=== PATIENT | male | born 1950 | race Caucasian/White ===

== ENCOUNTER 2017-12-15 10:57 | Day surgery (SDC) | payer MEDICARE, MEDICAID ==
[2017-12-15] MEDS ORDERED: CEFAZOLIN SOD 1 GM in APPROPRIATE DILUENT 1 EA IV (11:15)
[2017-12-15] MEDS ORDERED: PROPOFOL 200 MG/20 ML VIAL As Ordered (12:40)
[2017-12-15] MEDS ORDERED: fentaNYL 100 MCG/2 ML INJECTION (J3010) As Ordered (12:40)
[2017-12-15] MEDS ORDERED: MIDAZOLAM INJ 2 MG/2 ML VIAL (J2250) As Ordered (12:41)
[2017-12-15] MEDS ORDERED: ONDANSETRON 4MG/2ML VIAL (J2405) As Ordered (13:28)
[2017-12-15] MEDS ORDERED: dexameTHASONE 4 MG/ML 1ML VIAL (J1100) As Ordered (13:28)
[2017-12-15] MEDS ORDERED: KETOROLAC 60 MG/2 ML VIAL (J1885) As Ordered (13:28)
[2017-12-15] MEDS: LIDOCAINE 1% SDV INJ 30 ML VIAL As Ordered (13:54)
== END 2017-12-15 15:10 | disposition home or self-care (01) ==
LOC: M SDC 10:57
DX: T82.198A Other mechanical complication of other cardiac electronic device, initial encounter (principal); R55 Syncope and collapse; I48.0 Paroxysmal atrial fibrillation; R94.31 Abnormal electrocardiogram [ECG] [EKG]; R00.2 Palpitations; I73.9 Peripheral vascular disease, unspecified; I49.3 Ventricular premature depolarization; E78.5 Hyperlipidemia, unspecified; N40.0 Benign prostatic hyperplasia without lower urinary tract symptoms; F41.9 Anxiety disorder, unspecified; F32.9 Major depressive disorder, single episode, unspecified; M15.0 Primary generalized (osteo)arthritis; J44.9 Chronic obstructive pulmonary disease, unspecified; M51.9 Unspecified thoracic, thoracolumbar and lumbosacral intervertebral disc disorder; F17.210 Nicotine dependence, cigarettes, uncomplicated; Z88.5 Allergy status to narcotic agent; Z91.040 Latex allergy status; Z79.899 Other long term (current) drug therapy; Z79.82 Long term (current) use of aspirin; Z96.641 Presence of right artificial hip joint; Z98.84 Bariatric surgery status
CPT/HCPCS: 33282

== ENCOUNTER 2023-01-03 11:37 | Day surgery (SDC) | payer MEDICARE, MEDICAID ==
[~2023-01-03] VITALS: Ht 177.8 cm; Wt 57.6 kg
[~2023-01-03 11:37] MED LIST: AIMO70IN2 SQ; ALBU2.5V10 INH; ALBUTEROL INH; AMIT10TA7 PO; APAP500T10 PO; ASPI81TA83 OR; ATOR1TAB21 PO; ATOR80TA59 PO; CYAN1000VL SUBQ; DULO1CAP6 PO; GABA-1171 PO; LIPI20TA OR; PRAZ2CAP PO; PROA1AER2 INH; PROAAER10 INH; SERT50TA29 PO; SYMB16INH INH; VITA100093 PO; VITA200015 PO; VITMTA PO; XARE10TA PO; [UNRECOGNIZED DRUG - CODE] PO
[2023-01-03] MEDS ORDERED: LIDOCAINE 2% 100MG/5ML SDV (FOR ANES.) As Ordered ONE (11:47)
[2023-01-03] MEDS ORDERED: fentaNYL 100 MCG/2 ML INJECTION As Ordered ONE (11:47)
[2023-01-03] MEDS ORDERED: MIDAZOLAM INJ 2MG/2ML VIAL As Ordered ONE (11:47)
[2023-01-03] MEDS ORDERED: propofoL 200 MG/20 ML VIAL As Ordered ONE (11:47)
[2023-01-03] MEDS ORDERED: LR 1,000 ML IV SCH (12:00)
[2023-01-03] MEDS ORDERED: ceFAZolin SOD 2 GM in IV 1 EA IV ONE (13:00)
[2023-01-03] MEDS ORDERED: LIDOCAINE 1% SDV 30ML VIAL As Ordered ONE (13:08)
[2023-01-03 14:55] VITALS: BP 117/67
== END 2023-01-03 15:30 | disposition home or self-care (01) ==
LOC: M SDC 11:37
PROVIDERS: ATTEND Internal Medicine Cardiovascular Disease
DX: Z45.09 Encounter for adjustment and management of other cardiac device (principal); I48.91 Unspecified atrial fibrillation; I10 Essential (primary) hypertension; E78.5 Hyperlipidemia, unspecified; J44.9 Chronic obstructive pulmonary disease, unspecified; Z88.5 Allergy status to narcotic agent; Z91.040 Latex allergy status; F17.210 Nicotine dependence, cigarettes, uncomplicated; Z79.01 Long term (current) use of anticoagulants
CPT/HCPCS: 33285; C1764; J0690; J2250; J3010